=== PATIENT | male | born 1945 | race Caucasian/White ===

== ENCOUNTER 2016-12-16 12:43 | Emergency (ER) | payer MEDICARE, OTHER | END 2016-12-16 16:24 | disposition home or self-care (01) | DX: N50.811 Right testicular pain (principal); K40.90 Unilateral inguinal hernia, without obstruction or gangrene, not specified as recurrent; R03.0 Elevated blood-pressure reading, without diagnosis of hypertension; F03.90 Unspecified dementia, unspecified severity, without behavioral disturbance, psychotic disturbance, mood disturbance, and anxiety; Z87.820 Personal history of traumatic brain injury; Z79.82 Long term (current) use of aspirin; Z87.891 Personal history of nicotine dependence ==

== ENCOUNTER 2016-12-18 | Outpatient (CLI) | payer MEDICARE, OTHER | END 2016-12-18 09:33 | disposition critical access hospital (66) | DX: N50.819 Testicular pain, unspecified (principal) | CPT/HCPCS: A0425; A0429 ==

== ENCOUNTER 2016-12-18 09:41 | Emergency (ER) | payer MEDICARE, OTHER ==
[2016-12-18] MEDS ORDERED: ACETAMINOPHEN 325 MG TABLET PO STA (09:53)
[2016-12-18] MEDS ORDERED: ACETAMINOPHEN 325 MG TABLET PO ONE (10:01)
== END 2016-12-18 10:18 | disposition home or self-care (01) ==
DX: K40.90 Unilateral inguinal hernia, without obstruction or gangrene, not specified as recurrent (principal); R03.0 Elevated blood-pressure reading, without diagnosis of hypertension; F03.90 Unspecified dementia, unspecified severity, without behavioral disturbance, psychotic disturbance, mood disturbance, and anxiety; Z87.891 Personal history of nicotine dependence; Z79.82 Long term (current) use of aspirin
CPT/HCPCS: 99283; A9270

== ENCOUNTER 2016-12-22 08:25 | Day surgery (SDC) | payer MEDICARE, OTHER ==
[~2016-12-22 08:25] MED LIST: ceFAZolin 1 GM VIAL ONE
[2016-12-22] MEDS ORDERED: LACTATED RINGERS 1,000 ML IV ONE (08:52)
[2016-12-22] MEDS ORDERED: PROPOFOL 200 MG/20 ML VIAL IVP ONE (10:10)
[2016-12-22] MEDS ORDERED: fentaNYL 100 MCG/2 ML VIAL IVP ONE (10:10)
[2016-12-22] MEDS ORDERED: LIDOCAINE-PF 2% 10 ML AMP SUBQ ONE (10:10)
[2016-12-22] MEDS ORDERED: MIDAZOLAM 2 MG/2 ML VIAL IVP ONE (10:10)
[2016-12-22] MEDS ORDERED: LIDOCAINE 1%-EPI 1:100000 20 ML MDV SUBQ ONE ×2 (10:25)
[2016-12-22] MEDS ORDERED: BUPIVACAINE 0.5% PF 30 ML VIAL SUBQ ONE ×2 (10:25)
[2016-12-22] MEDS ORDERED: oxyCOD/ACETAMIN 5 MG/325 MG TABLET PO ONE (11:59)
== END 2016-12-22 08:26 | disposition home or self-care (01) ==
PROC: 0YU50JZ Supplement Right Inguinal Region with Synthetic Substitute, Open Approach (ICD-10-PCS; principal; 2016-12-22 09:30)
DX: K40.90 Unilateral inguinal hernia, without obstruction or gangrene, not specified as recurrent (principal); F32.9 Major depressive disorder, single episode, unspecified; Z87.820 Personal history of traumatic brain injury; Z82.49 Family history of ischemic heart disease and other diseases of the circulatory system; Z80.0 Family history of malignant neoplasm of digestive organs; Z87.891 Personal history of nicotine dependence; E78.5 Hyperlipidemia, unspecified; Z79.82 Long term (current) use of aspirin; F03.90 Unspecified dementia, unspecified severity, without behavioral disturbance, psychotic disturbance, mood disturbance, and anxiety
CPT/HCPCS: 49505; A9270; J7120

== ENCOUNTER 2017-02-15 13:38 | Outpatient (CLI) | payer MEDICARE, OTHER | END 2017-02-15 13:39 | disposition home or self-care (01) | DX: R45.1 Restlessness and agitation (principal); R41.81 Age-related cognitive decline ==

== ENCOUNTER 2017-08-16 14:39 | Outpatient (CLI) | payer OTHER ==
--- NOTE | 2017-08-16 18:03 | CT Report ---
CT BRAIN WITHOUT CONTRAST: 08/16/2017 CLINICAL INDICATION: Progressive cognitive decline, worsening gait. COMPARISON: 10/22/2015 TECHNIQUE: Axial CT images of the brain were obtained without contrast. FINDINGS: Encephalomalacia in the bilateral frontal lobes and right temporal lobe were stable, annamaria tible with previous trauma. Atrophy is unchanged. There is no evidence of developing hydrocephalus. No acute hemorrhage, mass effect, or midline shift is present. The basilar cisterns remain patent. Postoperative changes are noted in the orbits bilaterally. The paranasal sinuses demonstrate mild mucosal thickening. IMPRESSION: STABLE ATROPHY AND CHRONIC ENCEPHALOMALACIA, COMPATIBLE WITH SEQUELA OF PREVIOUS TRAUMA. NO EVIDENCE OF ACUTE HEMORRHAGE OR MASS EFFECT. In accordance with CT protocol optimization, one or more of the following dose reduction techniques w ere utilized for this exam: automated exposure control, adjustment of mA and/or KV based on patient size, or use of iterative reconstructive technique. JOB #: [id number] EXT JOB #:[id number]
== END 2017-08-16 14:40 | disposition home or self-care (01) ==
LOC: DI 14:39
PROVIDERS: ATTEND Psychiatry & Neurology Neurology
DX: G31.9 Degenerative disease of nervous system, unspecified (principal); G93.89 Other specified disorders of brain
CPT/HCPCS: 36415; 70450; 82607

== ENCOUNTER 2017-08-27 11:59 | Outpatient (CLI) | payer MEDICARE, MEDICAID | END 2017-08-27 12:00 | disposition critical access hospital (66) | LOC: EMS 11:59 | PROVIDERS: ATTEND Surgery | DX: R53.1 Weakness (principal); R47.81 Slurred speech | CPT/HCPCS: A0425; A0429 ==

== ENCOUNTER 2017-08-27 12:08 | Observation (INO) | payer MEDICARE, MEDICAID ==
--- NOTE | 2017-08-27 12:16 | ED Physician Documentation ---
PD HPI FOCAL NEURO - Stated complaint Stated Complaint: CVA - Chief complaint Chief Complaint: Neuro - History obtained from History obtained from: Patient, Family (), EMS - History of Present Illness Timing - onset: Today (at 10:15 this morning, noted onset of expressive aphasia and dysarthria, slow to answer. No focal weakness. Had seemed okay this morning when awoke.) Timing - duration: Hours (2) Timing - details: Abrupt onset, Still present (improving slowly here in ED) Severity of deficit: Moderate Weakness: No: Face, Arm, Leg Numbness: No: Face, Arm, Leg Associated symptoms: No: Headache, Nausea / vomiting, Fall, Head injury Contributing factors: negative: Anticoagulated Baseline status: positive: A&OX3, ambulatory, indep, Dementia Similar symptoms before: Has not had sx before Recently seen: Not recently seen Review of Systems Unable to obtain: Dementia, Other (info from ) Constitutional: denies: Fever, Chills Nose: denies: Rhinorrhea / runny nose, Congestion Throat: denies: Sore throat Cardiac: denies: Chest pain / pressure, Palpitations Respiratory: denies: Dyspnea, Cough GI: denies: Abdominal Pain, Nausea, Vomiting, Diarrhea Musculoskeletal: denies: Neck pain, Back pain Neurologic: reports: Difficulty speaking, Altered mental status (trouble speaking and also very slow to respond to questions and directions.). denies: Generalized weakness, Focal weakness, Numbness, Syncope Endocrine: denies: Weight loss Immunocompromised: denies: Immunocompromised PD PAST MEDICAL HISTORY - Past Medical History Cardiovascular: None Respiratory:  Neuro: Dementia, Head injury Endocrine/Autoimmune: None GI: None : Frequency HEENT: Glaucoma, Chronic hearing loss Psych: Depression, Anxiety Musculoskeletal: None Derm: None - Past Surgical History Past Surgical History: No General: Colonoscopy Ortho: Other Neuro: Craniotomy - Present Medications Home Medications: Ambulatory Orders Medication Instructions Recorded Confirmed Aspirin 81 mg ORAL DAILY 04/13/15 08/27/17 Cholecalciferol (Vitamin D3) 2,000 unit PO DAILY 04/13/15 08/27/17 [Vitamin D3] Lorazepam 1 mg PO DAILY 08/27/17 08/27/17 Lorazepam 2 mg PO 2100 08/27/17 08/27/17 Aspirin [Nadai] 325 mg PO DAILYWM tablet 08/28/17 Atorvastatin [Lipitor] 10 mg PO QPM #30 tablet 08/28/17 - Allergies Allergies/Adverse Reactions: Allergies Allergy/AdvReac Type Severity Reaction Status Date / Time No Known Drug Allergies Allergy Verified 08/27/17 12:22 - Social History Does the pt smoke?: No Smoking Status: Former smoker Does the pt drink ETOH?: Yes Does the pt have substance abuse?: No - Family History Family history: reports: Non contributory - Immunizations Immunizations are current?: No Immunizations: TDAP >10years/unknown - POLST Patient has POLST: No PD ED PE NORMAL - Vitals Vital signs reviewed: Yes - General General: No acute distress, Well developed/nourished, Other (oriented to person , slow to answer questions (some due to hard of hearing, but still slow when he hears okay. ) - HEENT HEENT: Atraumatic, PERRL, EOMI, Pharynx benign - Neck Neck: Supple, no meningeal sign, No adenopathy, No JVD - Cardiac Cardiac: RRR, No murmur - Respiratory Respiratory: Clear bilaterally - Abdomen Abdomen: Soft, Non tender - Male Male : Deferred - Rectal Rectal: Deferred - Back Back: No CVA TTP - Derm Derm: Normal color, Warm and dry - Extremities Extremities: Normal ROM s pain, No edema, No calf tenderness / cord - Neuro Neuro: No motor deficit, No sensory deficit. No: Normal speech NIHSS - Level of Consciousness Level of consciousness: (0) Alert, Keenly responsive LOC Questions: (0) Answers both Q's correct LOC Commands: (0) Performs both correctly - Gaze Best Gaze: (0) Normal - Visual Visual: (0) No loss - Facial Palsy Facial Palsy: (0) Normal, symmetrical movement - Motor Arms (both separate) Motor Arm (right): (0) No drift Motor Arm (left): (0) No drift - Motor Legs (both separate) Motor Leg (right): (0) No drift Motor Leg (left): (0) No drift - Limb Ataxia Limb Ataxia: (0) Absent - Sensory Sensory: (0) Normal - Best Language Best Language: (1) [id number] - Dysarthria Dysarthria: (1) [id number] dysarthria - Extinction and Inattention (formally neg Extinction and inattention: (0) No abnormality - Total Score/Results Total Score/Result: 2 Results - Vitals Vitals: Oxygen O2 Source Room air - EKG (time done) 12:27 Rate: Rate (enter#) (64) Rhythm: NSR (with prequent PACs) [place]: Normal Intervals: Normal [place] QRS: Normal Ischemia: Normal ST segments, ST elevation c/w repol. No: ST elevation c/w ischemia, ST depression - Labs Labs: Laboratory Tests 08/27/17 08/27/17 12:11 13:05 WBC 5.4 RBC 4.91 Hgb 14.3 Hct 43.1 MCV 87.8 MCH 29.1 MCHC 33.1 RDW 13.9 Plt Count 208 MPV 6.9 L Neut # 3.6 Lymph # 1.3 L Wilkes # 0.4 Eos # 0.1 Baso # 0.0 Absolute Nucleated RBC 0.00 Nucleated RBC % 0.0 Sodium 138 Potassium 3.8 Chloride 104 Carbon Dioxide 27 Anion Gap 7.0 BUN 13 Creatinine 0.8 Estimated GFR (MDRD) 95 Glucose 94 Calcium 8.9 Magnesium 2.0 Total Bilirubin 0.6 AST 18 ALT 14 Alkaline Phosphatase 42 Total Protein 6.3 L Albumin 3.9 Globulin 2.4 Albumin/Globulin Ratio 1.6 Lipase 43 - Rads (name of study) head CT Radiology: Prelim report reviewed (no acute process), Discussed with rads PD MEDICAL DECISION MAKING - ED course Complexity details: reviewed results, re-evaluated patient (language improving but he is agitated now and given meds for anxiety. Still concern for CVA vs TIA , metabolic or infectious causes of symptoms. ), considered differential, d/w business analyst consultant (Neurology at [facility], who did not feel patient has symptoms/ certainty enough to warrant risk of TPA. Further workup needed. ), other ( talked with Dr. Butler, Hospitalist, who will place patient in hospital. ) Departure - Departure Disposition: ED Place in Observation Clinical Impression: Expressive aphasia TIA (transient ischemic attack) Qualifiers: Transient cerebral ischemia type: other Qualified Code(s): G45.8 - Other transient cerebral ischemic attacks and related syndromes Condition: Good Record reviewed to determine appropriate education?: Yes Discharge Date/Time: 08/27/17 15:57
[2017-08-27] MEDS ORDERED: SODIUM CHLORIDE 0.9% 1,000 ML IV ONE (12:46)
--- NOTE | 2017-08-27 12:59 | CT Preliminary Report ---
Exam: CT HEAD W/O STROKE PROTOCOL IMPRESSION: 1. No acute intracranial abnormality. 2. Patchy areas of encephalomalacia seen in the frontal lobes bilaterally and anterior right temporal lobe. Findings may represent sequela of previous trauma. This is unchanged. Critical test: Findings are discussed with referring physician on 08/27/2017 at 1244 hrs. [facility] SITE ID: [id number]
[2017-08-27] MEDS ORDERED: LORazepam 2 MG/ML SYRINGE IVP STA (13:01)
[2017-08-27] MEDS ORDERED: LORazepam 2 MG/ML SYRINGE ONE (13:05)
[2017-08-27 13:08] LABS: ALBUMIN/GLOBULIN RATIO 1.6 (1.0-2.2); BILIRUBIN,TOTAL 0.6 mg/dL (0.2-1.0); CALCIUM 8.9 mg/dL (8.5-10.3); CREATININE 0.8 mg/dL (0.6-1.2); POTASSIUM 3.8 mmol/L (3.5-5.0); TOTAL PROTEIN 6.3 g/dL (6.7-8.2)
[2017-08-27 13:12] LABS: BASOPHILS % (AUTO) 0.3 %; EOSINOPHILS # (AUTO) 0.1 10^3/uL (0.0-0.7); EOSINOPHILS % (AUTO) 1.6 %; HCT - HEMATOCRIT 43.1 % (42.0-52.0); HGB - HEMOGLOBIN 14.3 g/dL (14.0-18.0); LYMPHOCYTES # (AUTO) 1.3 10^3/uL (1.5-3.5); MEAN CORPUSCULAR HEMOGLOBIN 29.1 pg (27.0-31.0); MEAN CORPUSCULAR HGB CONC 33.1 g/dL (32.0-36.0); MEAN CORPUSCULAR VOLUME 87.8 fL (80.0-94.0); MEAN PLATELET VOLUME 6.9 fL (7.4-11.4); MONOCYTES # (AUTO) 0.4 10^3/uL (0.0-1.0); MONOCYTES % (AUTO) 7.6 %; NEUTROPHILS # (AUTO) 3.6 10^3/uL (1.5-6.6); NEUTROPHILS % (AUTO) 66.5 %; RED BLOOD COUNT 4.91 10^6/uL (4.70-6.10); RED CELL DISTRIBUTION WIDTH 13.9 % (12.0-15.0); UNCORRECTED WHITE BLOOD COUNT 5.4 x10^3/uL; WHITE BLOOD COUNT 5.4 x10^3/uL (4.8-10.8)
--- NOTE | 2017-08-27 13:15 | CT Report ---
EXAM: CT HEAD EXAM DATE: 08/27/2017 12:27 PM. CLINICAL HISTORY: Slurred speech/weakness. COMPARISON: CT scan of the head 08/16/2017, 10/22/2015. TECHNIQUE: Multiaxial CT images were obtained from the foramen magnum to the vertex. IV contrast: Non e. Reformats: Coronal. In accordance with CT protocol optimization, one or more of the following dose reduction techniques w ere utilized for this exam: automated exposure control, adjustment of mA and/or KV based on patient s ize, or use of iterative reconstructive technique. FINDINGS: Parenchyma: Cystic encephalomalacia is seen involving the anterior-inferior frontal lobes bilaterally . Patchy cystic encephalomalacia is also seen in the anterior temporal pole on the right. Small wedge -shaped area of parenchymal hypodensity is also seen anterolaterally in the right frontal lobe. These findings are unchanged. Extraaxial Spaces: Normal for age. No subdural or epidural collections identified. Ventricles: No hydrocephalus. Sinuses and orbits: Mild scattered mucosal thickening is seen throughout paranasal sinuses no opacifi cation or layering fluid level. The mastoid air cells are clear. Postoperative change is seen in the visualized maxilla bilaterally. Postoperative change is seen at the level of the right zygomatic arch . Bones: No evidence of fracture or calvarial defect. Other: None. IMPRESSION: 1. No acute intracranial abnormality. 2. Patchy areas of encephalomalacia seen in the frontal lobes bilaterally and anterior right temporal lobe. Findings may represent sequela of previous trauma. This is unchanged. Critical Test: Findings are discussed with referring physician on 08/27/2017 at 1244 hrs. [facility] Referring Provider Line: [phone] SITE ID: [id number]
[2017-08-27] MEDS ORDERED: HALOPERIDOL 5 MG/ML VIAL IVP ONE ×2 (13:27→13:41)
[2017-08-27] MEDS ORDERED: HALOPERIDOL 5 MG/ML VIAL ONE ×2 (13:33→13:46)
[2017-08-27] MEDS ORDERED: SODIUM CHLORIDE FLUSH 0.9% 10 ML SYRINGE IVP PRN (13:41)
[2017-08-27] MEDS ORDERED: LORazepam 0.5 MG TABLET PO SCH (14:00)
[2017-08-27 14:05] LABS: BILIRUBIN,URINE NEGATIVE (NEGATIVE)
[2017-08-27 14:06] LABS: UA CHARGE (STRIP ONLY) YES; UR CULTURE IF IND NOT INDICATED
[2017-08-27] MEDS ORDERED: IOPAMIDOL-300 100 ML VIAL ONE (14:29)
[2017-08-27] MEDS ORDERED: IOPAMIDOL-300 100 ML VIAL IVP ONE (15:20)
[2017-08-27] MEDS: SODIUM CHLORIDE FLUSH 0.9% 10 ML SYRINGE IVP SCH ×2 (15:41→21:18)
--- NOTE | 2017-08-27 16:15 | CT Preliminary Report ---
Exam: CT HEAD ANGIO Impression: CT angiogram head 1. There is calcified atherosclerotic plaque scattered throughout the carotid siphons without associa rc, hemodynamically significant ICA stenosis. 2. Otherwise unremarkable intracranial CT angiogram. No evidence of occlusion or hemodynamically sign ificant stenosis affecting main branches of the anterior or posterior circulations. SITE ID: [id number]
--- NOTE | 2017-08-27 16:29 | CT Preliminary Report ---
Exam: CT NECK ANGIO Impression: 1. There is atherosclerotic disease at the carotid bifurcations bilaterally. However, there is no sig nificant associated carotid artery stenosis. 2. Evaluation of the vertebral arteries is somewhat limited due to artifact. There appears be mild fo fiona narrowing in the proximal V2 segments bilaterally due to mass effect by large uncovertebral osteo phytes at C5-C6. No other obvious pathology is identified in the extracranial vertebral arteries. 3. Incidentally noted is a multilevel spinal stenosis. The narrowing appears be most prominent at the C4-C5 level where the mid sagittal canal diameter is reduced to about 6.5 mm. This typically equates to severe spinal stenosis. The possibility of mild cord impingement cannot be excluded. Consider fur ther assessment with dedicated imaging of the cervical spine, as clinically warranted. SITE ID: [id number]
[2017-08-27] MEDS: ASPIRIN 325 MG TABLET PO SCH (16:41)
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
--- NOTE | 2017-08-27 17:23 | HISTORY & PHYSICAL EXAMINATION ---
Chief Complaint - Chief Complaint Chief Complaint: altered mental status Stroke/TIA/Neuro Template - Admitted From Admitted from: ED - History Obtained From Records Reviewed: RN notes reviewed History obtained from: Family, Caregiver Exam limitations: Clinical condition, Language barrier (Patient was non-verbal at the time of the exam.) - History of Present Illness Problem Location Description: Acute mental status changes Severity at the worst: reports: Moderate Symptom Quality: reports: Expressive aphasia, Receptive aphasia, Ataxia, Other ( mute every since first noticed by this morning.) Context- Symptoms started w/: reports: Awake Timing: reports: Abrupt onset Date of onset: 08/27/17 Time of onset: 10:00 Duration: reports: Hours: Improved with: reports: Nothing Worsened by: reports: Movement, Other (new faces, loud voices.) Associated symptoms: reports: General Weakness HPI Comment/Other: Remy Quintana is a 72 year old male with a history of traumatic brain injury in 2002, closed head injury after a fall on the street while being intoxicated in 2014 per chart review, glaucoma, depression, anxiety disorder, hearing loss, and a long history of illicit drug use. He came to the ED today after his , Leonor noted an inability to ambulate and dysarthria sometime around 10am. Patient was very agitated while in the ED, so lorazepam and halal were administered with a desired effect of mild sedation. A CT with and without contrast of head and neck was performed with adequate comparisons done and there was no acute hemorrhage noted. [facility] neurology was contacted by ER physician and patient was not a candidate for TPA therapy due to the unknown nature of presenting symptoms. He was admitted to Hospitalist service for observation, further work-up, including an MRI. Unfortunately, the MRI was not completed due to profound patient agitation. But after around the 12th hour since admission, patient became verbal and was nearly baseline at the time of discharge. PMH/PSH - Past Medical History Cardiovascular: positive: None Respiratory: positive: None Neuro: positive: Dementia, Head injury Endocrine/Autoimmune: positive: None GI: positive: None : positive: None, Frequency HEENT: positive: Glaucoma, Chronic hearing loss Psych: positive: Depression, Anxiety Musculoskeletal: positive: None Derm: positive: None MRSA Hx?: No - Past Surgical History General: positive: Colonoscopy Ortho: positive: Other Neuro: positive: Craniotomy HEENT: positive: Other (glaucma) Other past surgical history: Trigger finger repair. Social & Family Hx - Living Situation Living Situation: With spouse/s.o., With caregiver(s) (Coordinated care workers assist with care/housekeeping/ADLs 3xs per week.) - Social History Does the pt smoke?: No Smoking Status: Former smoker Does the pt drink ETOH?: Yes ETOH Use: Liquor (Occasional per report. On 10/22/15 pt suffered a closed head injury after falling on the street while intoxicated.) Does the pt have substance abuse?: No Substance Use and Type: Marijuana (Past history, no recent use. admits to patient being a chronic "stoner" in his earlier years.) Additional Social History: Leonor notes patient to have an extremely high IQ, even after suffering from TBI 14 years ago. - POLST Patient has POLST: No POLST Status: Full Code - Family History Family History: Mother: Cancer, Father: Alcoholism, [place], Sister: Cancer Meds/Allgy - Home Medications Home Medications: Ambulatory Orders Medication Instructions Recorded Confirmed Aspirin 81 mg ORAL DAILY 04/13/15 08/27/17 Cholecalciferol (Vitamin D3) 2,000 unit PO DAILY 04/13/15 08/27/17 [Vitamin D3] Lorazepam 1 mg PO DAILY 08/27/17 08/27/17 Lorazepam 2 mg PO 2100 08/27/17 08/27/17 Aspirin [Nadia] 325 mg PO DAILYWM tablet 08/28/17 Atorvastatin [Lipitor] 10 mg PO QPM #30 tablet 08/28/17 - Allergies Allergies/Adverse Reactions: Allergies Allergy/AdvReac Type Severity Reaction Status Date / Time No Known Drug Allergies Allergy Verified 08/27/17 12:22 Review of Systems - Constitutional Constitutional: reports: Fatigue, Weakness, Poor appetite - Eyes Eyes: reports: Corrective lenses - Integumentary Integumentary: reports: Dryness - Neurological Neurological: reports: General weakness, Memory problems, Pre-existing deficit - Psychiatric Psychiatric: reports: Depression, Anxiety, Other (combative at times.) - All Other Systems All Other Systems: reports: Reviewed and negative (Other than previously noted.) Exam - Vital Signs Reviewed Vital Signs: Yes Vital Signs: Vital Signs x48h Pulse Pulse Resp BP BP Pulse Ox 08/27/17 14:00 85 14 131/69 H 100 10/23/17 13:55 64 18 106/79 100 - Physical Exam General Appearance: positive: Mild distress, Lethargic (due to medical sedation , given in ER.) Eyes Bilateral: positive: Normal inspection, PERRL, EOMI ENT: positive: ENT inspection nml, Pharynx nml, No signs of dehydration Neck: positive: Nml inspection, Thyroid nml, No JVD, Trachea midline Respiratory: positive: No respiratory distress Cardiovascular: positive: Regular rate & rhythm Peripheral Pulses: positive: 2+ Abdomen: positive: Non-tender, No organomegaly, Nml bowel sounds, No distention Back: positive: Nml inspection Skin: positive: Color nml, No rash, Warm, Dry Extremities: positive: Nml appearance, No pedal edema Neurologic/Psychiatric: positive: CN's nml (2-12), Weakness, Sensory loss, Depressed mood/affect Reflexes: Bicep (R): 4+, Bicep (L): 4+, Knee (R): 4+, Knee (L): 4+, Ankle (R): 4 +, Ankle (L): 4+ Results - Lab Results Lab results reviewed: Yes Fish Bones: 08/27/17 13:05 08/27/17 12:11 Other Lab Results: Lab Results x24hrs 08/27/17 Range/Units 13:57 Urine Color YELLOW Urine Clarity CLEAR (CLEAR) Urine pH 7.0 (5.0-7.5) PH Ur Specific [place] 1.010 (1.002-1.030) Urine Protein NEGATIVE (NEGATIVE) mg/dL Urine Glucose (UA) NEGATIVE (NEGATIVE) mg/dL Urine Ketones NEGATIVE (NEGATIVE) mg/dL Urine Occult Blood NEGATIVE (NEGATIVE) Urine Nitrite NEGATIVE (NEGATIVE) Urine Bilirubin NEGATIVE (NEGATIVE) Urine Urobilinogen 0.2 (NORMAL) (NORMAL) E.U./dL Ur Leukocyte Esterase NEGATIVE (NEGATIVE) Ur Microscopic Review NOT INDICATED Urine Culture Comments NOT INDICATED TSH, B12, Folate, Amonia, RPR, ESR/CRP, troponin and urine tox screen-pending. - Diagnostic Imaging Results Diagnostic Imaging Results: positive: Final report reviewed Diagnostic Imaging Results Comments: CT head 08/27/17: There is atherosclerotic disease at the carotid bifurcations bilaterally. However, there is no significant associated carotid artery stenosis. There appears to be mild focal narrowing in the proximal V2 segments bilaterally due to mass effect by large uncovertebral osteophytes at C5-C6. No other obvious pathology is identified in the extracranial vertebral arteries. Incidentally noted is a multilevel spinal stenosis. The narrowing appears to be most prominent at the C4-C5 level where the mild sagittal canal diameter is reduced to about 6.5mm. This typically equates to severe spinal stenosis. The possibility of mild cord impingement cannot be excluded. Consider further assessment with dedicated imaging of the cervical spine. Patchy areas of encephalomalacia seen in the frontal lobes bilaterally and anterior right temporal lobe. Findings may represent sequela of previous trauma. This is unchanged and study was compared to CT scan of the head from 10/21, 10/22/2015. CTA head 08/27/17: There is calcified atherosclerotic plaque scattered throughout the carotid siphons without associated, hemodynamically significant ICA stenosis. No evidence of occlusion or hemodynamically significant stenosis affecting main branches of the anterior or posterior circulations. - EKG Results EKG Interpreted Independently: Yes EKG Comparison: positive: Old EKG unavailable EKG Findings: Sinus [id number]. Peaked T-waves. ARRA - Anticipated LOS Anticipated Stay Length: Less than 2 midnights - AMI - Statin at Admit Aspirin Prescribed on Admit: Yes - Stroke - Rehab Assessment Rehab services assessment to be ordered?: No Impression/Plan - Problem List Problem List: 1. Altered mental status: CT head/neck, MRI ordered, but not performed due to patient agitation. 2. Encephalopathy: Labs ordered to determine cause of AMS. TSH, B12, folate, Amonia, RPR, ESR/CRP, troponin and urine tox screen. 3. Agitation: Home lorazepam resumed, additional IV form ordered. at bedside.
[2017-08-27] MEDS ORDERED: ATORVASTATIN 10 MG TABLET PO SCH (21:00)
[2017-08-28] MEDS: SODIUM CHLORIDE FLUSH 0.9% 10 ML SYRINGE IVP SCH ×2 (06:40→14:40)
[2017-08-28 08:08] LABS: THYROID STIMULATING HORMONE 1.47 uIU/mL (0.34-5.60)
[2017-08-28 08:20] LABS: FOLATE 8.01 ng/mL (5.90 - >24.8)
[2017-08-28] MEDS ORDERED: CHOLECALCIFEROL 1,000 UNIT TABLET PO SCH (09:00)
[2017-08-28] MEDS ORDERED: POLYETHYLENE GLYCOL 3350 17 GM PACKET PO SCH (09:00)
[2017-08-28] MEDS ORDERED: ASPIRIN EC 81 MG TABLET PO SCH (09:00)
[2017-08-28] MEDS: LORazepam 0.5 MG TABLET PO PRN ×2 (10:34→16:38)
[2017-08-28] MEDS: ASPIRIN 325 MG TABLET PO SCH (10:34)
--- NOTE | 2017-08-28 16:17 | DISCHARGE SUMMARY ---
Discharge Summary Admit Date: 08/27/17 Discharge Date: 08/28/17 Discharging Provider: Sally Shaffer NP Code Status: Attempt Resuscitation Condition at Discharge: Good Discharge Disposition: 01 Home, Self Care Discharge Facility Name: Home with - DIAGNOSES Admission Diagnoses: Altered mental status Agitation Ataxia Dysarthria - HPI History of Present Illness: Remy Quintana is a 72 year old male with a history of traumatic brain injury in 2002, closed head injury after a fall on the street while being intoxicated in 2014 per chart review, glaucoma, depression, anxiety disorder, hearing loss, and a long history of illicit drug use. He came to the ED today after his , Leonor noted an inability to ambulate and dysarthria sometime around 10am. Patient was very agitated while in the ED, so lorazepam and halal were administered with a desired effect of mild sedation. A CT with and without contrast of head and neck was performed with adequate comparisons done and there was no acute hemorrhage noted. [facility] neurology was contacted by ER physician and patient was not a candidate for TPA therapy due to the unknown nature of presenting symptoms. He was admitted to Hospitalist service for observation, further work-up, including an MRI. Unfortunately, the MRI was not completed due to profound patient agitation. But after around the 12th hour since admission, patient became verbal and was nearly baseline at the time of discharge. - HOSPITAL COURSE Hospital Course: 1. Altered mental status: CT head/neck and CTA head/neck performed. MRI ordered, but not performed due to patient agitation. 2. Rule out Encephalopathy: Labs ordered to determine cause of AMS. TSH, B12 , folate, Amonia, RPR, ESR/CRP, troponin were all within normal limits, and urine tox screen was not obtained. 3. Agitation: Home lorazepam resumed. at bedside. Patient continued with mild agitation, which is noted to be somewhat baseline, until the time of discharge. noted "feeling safe" around her despite these time of combativeness and agitation. - ALLERGIES Allergies/Adverse Reactions: Allergies Allergy/AdvReac Type Severity Reaction Status Date / Time No Known Drug Allergies Allergy Verified 08/27/17 12:22 - MEDICATIONS Home Medications: Ambulatory Orders Medication Instructions Recorded Confirmed Aspirin 81 mg ORAL DAILY 04/13/15 08/27/17 Cholecalciferol (Vitamin D3) 2,000 unit PO DAILY 04/13/15 08/27/17 [Vitamin D3] Lorazepam 1 mg PO DAILY 08/27/17 08/27/17 Lorazepam 2 mg PO 2100 08/27/17 08/27/17 Aspirin [Nadia] 325 mg PO DAILYWM tablet 08/28/17 Atorvastatin [Lipitor] 10 mg PO QPM #30 tablet 08/28/17 - PHYSICAL EXAM AT DISCHARGE General Appearance: positive: No acute distress Eyes Bilateral: positive: Normal inspection ENT: positive: ENT inspection nml, Pharynx nml, No signs of dehydration Neck: positive: Nml inspection, Thyroid nml, No JVD Respiratory: positive: Chest non-tender, No respiratory distress, Breath sounds nml Cardiovascular: positive: Regular rate & rhythm, Bradycardia (at times) Peripheral Pulses: positive: 2+ Abdomen: positive: Non-tender, No organomegaly, Nml bowel sounds, No distention Back: positive: Nml inspection Skin: positive: Color nml, No rash, Warm, Dry Extremities: positive: Non-tender, Full ROM, Nml appearance, No pedal edema Neurologic/Psychiatric: positive: Oriented x3, CN's nml (2-12) Reflexes: Bicep (R): 4+, Bicep (L): 4+, Knee (R): 4+, Knee (L): 4+, Ankle (R): 4 +, Ankle (L): 4+ Physical Exam Other/Comments: Remy drastically improved throughtout the past 24 hours. At the time of admission on 08/27/17 patient was combative, agitated, non-verbal, profoundly ataxic and could not tolerate the MRI test. By the morning of discharge patient was near baseline in regards to ambulation and mental status. He was speaking in full sentences and followed every command as requested. - LABS Result Diagrams: 08/27/17 13:05 08/27/17 12:11 - DIAGNOSTIC IMAGING Diagnostic Imaging Results: Final report reviewed Diagnostic Imaging Results Comments: CT head 08/27/17: There is atherosclerotic disease at the carotid bifurcations bilaterally. However, there is no significant associated carotid artery stenosis. There appears to be mild focal narrowing in the proximal V2 segments bilaterally due to mass effect by large uncovertebral osteophytes at C5-C6. No other obvious pathology is identified in the extracranial vertebral arteries. Incidentally noted is a multilevel spinal stenosis. The narrowing appears to be most prominent at the C4-C5 level where the mild sagittal canal diameter is reduced to about 6.5mm. This typically equates to severe spinal stenosis. The possibility of mild cord impingement cannot be excluded. Consider further assessment with dedicated imaging of the cervical spine. Patchy areas of encephalomalacia seen in the frontal lobes bilaterally and anterior right temporal lobe. Findings may represent sequela of previous trauma. This is unchanged and study was compared to CT scan of the head from 10/21, 10/22/2015. CTA head 08/27/17: There is calcified atherosclerotic plaque scattered throughout the carotid siphons without associated, hemodynamically significant ICA stenosis. No evidence of occlusion or hemodynamically significant stenosis affecting main branches of the anterior or posterior circulations. - FOLLOW UP Follow Up: Follow up with PCP in 3-5 days. Decrease environmental stimuli. Use a cane for ambulation and assistance from , Are. See neurology, [facility]. - TIME SPENT Time Spent in Discharge (Minutes): 90
--- NOTE | 2017-08-28 16:18 | Discharge Plan ---
Discharge Plan Disposition: Home, Self Care Condition: Good Prescriptions: Atorvastatin [Lipitor] 10 mg PO QPM #30 tablet Diet: Regular Activity Restrictions: Activity as Tolerated Shower Restrictions: No Driving Restrictions: Yes Assistance Devices: Cane (May benefit from using a cane in the first 24 hours of being home.) Weight Bearing: Full Weight Instruction Topics: Atorvastatin tablets, Aphasia, TIA No Smoking: If you smoke, Please STOP! Call for help. Follow-up with: Jennifer Chang MD [Primary Care Provider] -
[2017-08-28 17:31] VITALS: BP 120/65
== END 2017-08-28 17:40 | disposition home or self-care (01) ==
LOC: EDUNIT# → ED 12:08 → OBS 13:41
PROVIDERS: ADMIT Nurse Practitioner; ATTEND Nurse Practitioner
DX: R41.82 Altered mental status, unspecified (principal); R27.0 Ataxia, unspecified; R47.1 Dysarthria and anarthria; F03.91 Unspecified dementia, unspecified severity, with behavioral disturbance; F41.9 Anxiety disorder, unspecified; F32.9 Major depressive disorder, single episode, unspecified; H91.90 Unspecified hearing loss, unspecified ear; Z79.82 Long term (current) use of aspirin; Z87.891 Personal history of nicotine dependence; Z87.820 Personal history of traumatic brain injury
CPT/HCPCS: 36415; 70450; 70496; 70498; 80053; 80306; 81003; 82607; 82746; 83690; 83735; 84443; 84484; 85025; 85651; 86140; 86780; 93005; 96361; 96374; 96375; 99285; A9270; G0378; J2060; Q9967; 81001; 87086

== ENCOUNTER 2017-11-13 08:00 | Outpatient (CLI) | payer MEDICARE, MEDICAID ==
[2017-11-13 18:00] LABS: BASOPHILS % (AUTO) 0.6 %; EOSINOPHILS # (AUTO) 0.1 10^3/uL (0.0-0.7); EOSINOPHILS % (AUTO) 2.6 %; HGB - HEMOGLOBIN 15.1 g/dL (14.0-18.0); LYMPHOCYTES # (AUTO) 1.9 10^3/uL (1.5-3.5); LYMPHOCYTES % (AUTO) 33.5 %; MEAN CORPUSCULAR HEMOGLOBIN 28.3 pg (27.0-31.0); MEAN CORPUSCULAR HGB CONC 32.3 g/dL (32.0-36.0); MEAN CORPUSCULAR VOLUME 87.7 fL (80.0-94.0); MEAN PLATELET VOLUME 7.9 fL (7.4-11.4); MONOCYTES # (AUTO) 0.6 10^3/uL (0.0-1.0); MONOCYTES % (AUTO) 9.8 %; NEUTROPHILS % (AUTO) 53.5 %; PLT - PLATELET COUNT 237 10^3/uL (130-450); RED BLOOD COUNT 5.33 10^6/uL (4.70-6.10); RED CELL DISTRIBUTION WIDTH 13.9 % (12.0-15.0); WHITE BLOOD COUNT 5.7 x10^3/uL (4.8-10.8)
[2017-11-13 18:12] LABS: ALBUMIN 4.3 g/dL (3.2-5.5); ALBUMIN/GLOBULIN RATIO 1.5 (1.0-2.2); BILIRUBIN,TOTAL 0.5 mg/dL (0.2-1.0); CALCIUM 9.2 mg/dL (8.5-10.3); CREATININE 0.8 mg/dL (0.6-1.2); TOTAL PROTEIN 7.1 g/dL (6.7-8.2)
== END 2017-11-13 08:01 | disposition home or self-care (01) ==
LOC: LAB.R 08:00
PROVIDERS: ATTEND Internal Medicine
DX: F03.90 Unspecified dementia, unspecified severity, without behavioral disturbance, psychotic disturbance, mood disturbance, and anxiety (principal); Z79.899 Other long term (current) drug therapy
CPT/HCPCS: 80053; 84443; 85025

== ENCOUNTER 2017-12-15 10:50 | Outpatient (CLI) | payer MEDICARE, MEDICAID | END 2017-12-15 10:51 | disposition critical access hospital (66) | LOC: EMS 10:50 | PROVIDERS: ATTEND Surgery | DX: R41.82 Altered mental status, unspecified (principal); R45.1 Restlessness and agitation | CPT/HCPCS: A0425; A0429 ==

== ENCOUNTER 2017-12-15 10:59 | Emergency (ER) | payer MEDICARE, MEDICAID ==
[2017-12-15] MEDS ORDERED: SODIUM CHLORIDE 0.9% 1,000 ML IV ONE (12:11)
--- NOTE | 2017-12-15 12:14 | ED Physician Documentation ---
History of Present Illness - Stated complaint Stated Complaint: DEC LOC - Chief complaint Chief Complaint: Neuro - History obtained from History obtained from: Patient, Family - History of Present Illness Timing: Today Pain level max: 0 Pain level now: 0 Improved by: nothing Worsened by: nothing - Additonal information Additional information: Patient is a 72-year-old male who presents to the emergency department with altered mental status, drowsiness and combativeness today. Does have a history of dementia. Recently started on Seroquel, has been on this for approximately 9 days. Approximately 30 minutes after taking the Seroquel today, he became very drowsy and hard to wake up. This has never happened after taking the Seroquel before. He has had no recent illnesses. No fall. Seems to be waking up for now. No seizure-like activity. Does have a history of brain injury. Review of Systems Unable to obtain: AMS, Dementia Constitutional: denies: Fever GI: denies: Vomiting Skin: denies: Rash Musculoskeletal: denies: Neck pain, Back pain Neurologic: denies: Headache PD PAST MEDICAL HISTORY - Past Medical History Cardiovascular: None Respiratory:  Neuro: Dementia, Head injury Endocrine/Autoimmune: None GI: None : Frequency HEENT: Glaucoma, Chronic hearing loss Psych: Depression, Anxiety Musculoskeletal: None Derm: None - Past Surgical History Past Surgical History: No General: Colonoscopy Ortho: Other Neuro: Craniotomy HEENT: Other - Present Medications Home Medications: Ambulatory Orders Medication Instructions Recorded Confirmed Aspirin 81 mg ORAL DAILY 04/13/15 12/15/17 Cholecalciferol (Vitamin D3) 2,000 unit PO DAILY 04/13/15 12/15/17 [Vitamin D3] QUEtiapine [SEROquel] 1 tab PO DAILY 12/15/17 12/15/17 - Allergies Allergies/Adverse Reactions: Allergies Allergy/AdvReac Type Severity Reaction Status Date / Time No Known Drug Allergies Allergy Verified 12/15/17 11:16 - Social History Does the pt smoke?: No Smoking Status: Former smoker Does the pt drink ETOH?: Yes Does the pt have substance abuse?: No - Immunizations Immunizations are current?: No Immunizations: TDAP >10years/unknown - POLST Patient has POLST: Yes POLST Status: Full Code PD ED PE NORMAL - Vitals Vital signs reviewed: Yes - General General: No acute distress, Other (drowsy, but arousable) - HEENT HEENT: PERRL, EOMI, Moist mucous membranes - Neck Neck: Supple, no meningeal sign - Cardiac Cardiac: RRR, Strong equal pulses - Respiratory Respiratory: No respiratory distress, Clear bilaterally - Abdomen Abdomen: Soft, Non tender, Non distended - Back Back: No spinal TTP - Derm Derm: Warm and dry, No rash - Extremities Extremities: No deformity - Neuro Neuro: Other (drowsy but arousable) - Psych Psych: Other (drowsy) Results - Vitals Vitals: Vital Signs - 24 hr 12/15/17 12/15/17 12/15/17 11:13 16:17 18:08 Temperature 36.2 C L 36.1 C L Heart Rate 70 55 L 82 Respiratory 18 16 16 Rate Blood Pressure 118/80 142/82 H 138/78 H O2 Saturation 97 97 97 Oxygen O2 Source Room air - EKG (time done) 1229 Rate: Rate (enter#) (57) Rhythm: NSR [place]: Normal Intervals: Normal MD QRS: Normal Ischemia: Normal ST segments (early R wave transition) - Labs Labs: Laboratory Tests 12/15/17 12/15/17 12/15/17 11:15 11:15 11:15 WBC 6.8 RBC 4.99 Hgb 14.6 Hct 42.9 MCV 86.1 MCH 29.2 MCHC 33.9 RDW 14.1 Plt Count 203 MPV 7.4 Neut # 4.5 Lymph # 1.6 [place] # 0.5 Eos # 0.2 Baso # 0.0 Absolute Nucleated RBC 0.01 Nucleated RBC % 0.1 Sodium 142 Potassium 4.0 Chloride 105 Carbon Dioxide 25 Anion Gap 12.0 BUN 16 Creatinine 0.8 Estimated GFR (MDRD) 95 Glucose 102 H Calcium 9.3 Total Bilirubin 0.6 AST 20 ALT 15 Alkaline Phosphatase 42 Troponin I < 0.04 Total Protein 6.6 L Albumin 3.8 Globulin 2.8 Albumin/Globulin Ratio 1.4 Lipase 31 Urine Color Urine Clarity Urine pH Ur Specific [place] Urine Protein Urine Glucose (UA) Urine Ketones Urine Occult Blood Urine Nitrite Urine Bilirubin Urine Urobilinogen Ur Leukocyte Esterase Ur Microscopic Review Urine Culture Comments Salicylates < 6.0 Urine Opiates Screen Ur Oxycodone Screen Urine Methadone Screen Ur Propoxyphene Screen Acetaminophen < 10 L Ur Barbiturates Screen Ur Tricyclics Screen Ur Phencyclidine Scrn Ur Amphetamine Screen U Methamphetamines Scrn U Benzodiazepines Scrn Urine Cocaine Screen U Cannabinoids Screen Ethyl Alcohol 5.1 12/15/17 12/15/17 15:29 15:29 WBC RBC Hgb Hct MCV MCH MCHC RDW Plt Count MPV Neut # Lymph # [place] # Eos # Baso # Absolute Nucleated RBC Nucleated RBC % Sodium Potassium Chloride Carbon Dioxide Anion Gap BUN Creatinine Estimated GFR (MDRD) Glucose Calcium Total Bilirubin AST ALT Alkaline Phosphatase Troponin I Total Protein Albumin Globulin Albumin/Globulin Ratio Lipase Urine Color YELLOW Urine Clarity CLEAR Urine pH 6.0 Ur Specific [place] 1.010 Urine Protein NEGATIVE Urine Glucose (UA) NEGATIVE Urine Ketones NEGATIVE Urine Occult Blood NEGATIVE Urine Nitrite NEGATIVE Urine Bilirubin NEGATIVE Urine Urobilinogen 0.2 (NORMAL) Ur Leukocyte Esterase NEGATIVE Ur Microscopic Review NOT INDICATED Urine Culture Comments NOT INDICATED Salicylates Urine Opiates Screen NEGATIVE Ur Oxycodone Screen NEGATIVE Urine Methadone Screen NEGATIVE Ur Propoxyphene Screen NEGATIVE Acetaminophen Ur Barbiturates Screen NEGATIVE Ur Tricyclics Screen NEGATIVE Ur Phencyclidine Scrn NEGATIVE Ur Amphetamine Screen NEGATIVE U Methamphetamines Scrn NEGATIVE U Benzodiazepines Scrn POSITIVE H Urine Cocaine Screen NEGATIVE U Cannabinoids Screen NEGATIVE Ethyl Alcohol - Rads (name of study) head CT Radiology: Prelim report reviewed, EMP read contemporaneously, See rad report ( No acute intracranial abnormality) PD MEDICAL DECISION MAKING - ED course Complexity details: reviewed old records, reviewed results, re-evaluated patient , considered differential, d/w patient, d/w family ED course: Patient is a 72-year-old male who has a history of Dementia. He was recently started on Seroquel and today became drowsy after taking the medication. No acute findings on CT head, laboratory testing, urinalysis. He was allowed to sleep in the emergency department and awoke to be at his normal mental baseline. We will have them stop the Seroquel at home for now and follow-up with her doctor to adjust his medications. Patient is well-appearing, nontoxic. Afebrile. No evidence of sepsis. No evidence of stroke. Patient and family counseled regarding signs and symptoms for which I believe and urgent re-evaluation would be necessary. Patient with good understanding of and agreement to plan and is comfortable going home at this time This document was made in part using voice recognition software. While efforts are made to proofread this document, sound alike and grammatical errors may occur. Departure - Departure Disposition: 01 Home, Self Care Clinical Impression: Altered mental status Qualifiers: Altered mental status type: transient alteration of awareness Qualified Code(s) : R40.4 - Transient alteration of awareness Condition: Good Instructions: ED Altered Loc Follow-Up: Jennifer Chang MD [Primary Care Provider] - Within 1 week Comments: Return if you worsen. I would recommend stopping the seroquel at this point as it may have caused his symptoms today. Follow up with his doctor for further medications. Discharge Date/Time: 12/15/17 18:11
[2017-12-15 12:19] LABS: BASOPHILS % (AUTO) 0.4 %; EOSINOPHILS # (AUTO) 0.2 10^3/uL (0.0-0.7); EOSINOPHILS % (AUTO) 2.3 %; HGB - HEMOGLOBIN 14.6 g/dL (14.0-18.0); LYMPHOCYTES # (AUTO) 1.6 10^3/uL (1.5-3.5); LYMPHOCYTES % (AUTO) 23.7 %; MEAN CORPUSCULAR HEMOGLOBIN 29.2 pg (27.0-31.0); MEAN CORPUSCULAR HGB CONC 33.9 g/dL (32.0-36.0); MEAN CORPUSCULAR VOLUME 86.1 fL (80.0-94.0); MEAN PLATELET VOLUME 7.4 fL (7.4-11.4); MONOCYTES # (AUTO) 0.5 10^3/uL (0.0-1.0); MONOCYTES % (AUTO) 7.7 %; NEUTROPHILS # (AUTO) 4.5 10^3/uL (1.5-6.6); NEUTROPHILS % (AUTO) 65.9 %; PLT - PLATELET COUNT 203 10^3/uL (130-450); RED BLOOD COUNT 4.99 10^6/uL (4.70-6.10); RED CELL DISTRIBUTION WIDTH 14.1 % (12.0-15.0); WHITE BLOOD COUNT 6.8 x10^3/uL (4.8-10.8)
[2017-12-15 12:30] LABS: ALBUMIN 3.8 g/dL (3.2-5.5); ALBUMIN/GLOBULIN RATIO 1.4 (1.0-2.2); ALKALINE PHOSPHATASE 42 IU/L (42-121); ALT ALANINE AMINOTRANSFERASE 15 IU/L (10-60); AST ASPARTATE AMINOTRANSFERASE 20 IU/L (10-42); BILIRUBIN,TOTAL 0.6 mg/dL (0.2-1.0); BUN - BLOOD UREA NITROGEN 16 mg/dL (6-20); CALCIUM 9.3 mg/dL (8.5-10.3); CARBON DIOXIDE - CO2 25 mmol/L (21-32); CHLORIDE 105 mmol/L (101-111); CREATININE 0.8 mg/dL (0.6-1.2); GFR - MDRD 95 (>89); GLUCOSE 102 mg/dL (70-100); LIPASE 31 U/L (22-51); SALICYLATE < 6.0 mg/dL; SODIUM 142 mmol/L (135-145); TOTAL PROTEIN 6.6 g/dL (6.7-8.2)
[2017-12-15 12:35] LABS: ACETAMINOPHEN < 10 ug/mL (10-30)
[2017-12-15 15:48] LABS: MUDS CUTOFF CONCENTRATIONS CUTOFF CONC BELOW:
[2017-12-15 15:51] LABS: BILIRUBIN,URINE NEGATIVE (NEGATIVE); GLUCOSE, URINE (UA) NEGATIVE (NEGATIVE); KETONES,URINE (UA) NEGATIVE (NEGATIVE); LEUKOCYTE ESTERASE, URINE NEGATIVE (NEGATIVE); NITRITE,URINE NEGATIVE (NEGATIVE); OCCULT BLOOD,URINE NEGATIVE (NEGATIVE); PROTEIN,URINE NEGATIVE (NEGATIVE); UROBILINOGEN,URINE 0.2 (NORMAL) E.U./dL (NORMAL)
[2017-12-15 15:53] LABS: CLARITY,URINE CLEAR (CLEAR)
[2017-12-15 16:01] LABS: AMPHETAMINE SCREEN,URINE NEGATIVE (NEGATIVE); BENZODIAZEPINES SCREEN, URINE POSITIVE (NEGATIVE); COCAINE SCREEN URINE NEGATIVE (NEGATIVE); METHADONE SCREEN, URINE NEGATIVE (NEGATIVE); METHAMPHETAMINES SCREEN, URINE NEGATIVE (NEGATIVE); OPIATE SCREEN, URINE NEGATIVE (NEGATIVE); OXYCODONE SCREEN, URINE NEGATIVE (NEGATIVE); PROPOXYPHENE SCREEN, URINE NEGATIVE (NEGATIVE); TRICYCLIC ANTIDEPRESSANT,URINE NEGATIVE (NEGATIVE)
--- NOTE | 2017-12-15 16:03 | CT Report ---
EXAM: CT HEAD EXAM DATE: 12/15/2017 03:02 PM. CLINICAL HISTORY: Confusion. COMPARISON: 08/27/2017. TECHNIQUE: Noncontrast axial imaging was performed through the head. In accordance with CT protocol optimization, one or more of the following dose reduction techniques w ere utilized for this exam: automated exposure control, adjustment of mA and/or KV based on patient s ize, or use of iterative reconstructive technique. FINDINGS HEAD CT: Parenchyma: No intraparenchymal hemorrhage. No evidence of mass, midline shift, or CT findings of acu te infarction. There is bifrontal and right temporal encephalomalacia which may be from prior trauma. Extraaxial Spaces: There is generalized volume loss. No subdural or epidural collections identified. Ventricles: Normal in size and position. Sinuses: Paranasal sinuses and mastoid air cells demonstrate no evidence of significant opacification . Bones: No evidence of fracture or calvarial defect. Other: None. IMPRESSION: 1. No acute intracranial CT abnormality. 2. There is stable bifrontal and right temporal encephalomalacia, possibly from prior trauma. [facility] Referring Provider Line: [phone] SITE ID: [id number]
[2017-12-15 18:09] VITALS: BP 138/78
== END 2017-12-15 18:11 | disposition home or self-care (01) ==
LOC: EDUNIT# → ED 10:59
DX: R40.4 Transient alteration of awareness (principal); F03.91 Unspecified dementia, unspecified severity, with behavioral disturbance; Z87.820 Personal history of traumatic brain injury; Z79.82 Long term (current) use of aspirin; Z87.891 Personal history of nicotine dependence
CPT/HCPCS: 36415; 70450; 80053; 80306; 80307; 81003; 83690; 84484; 85025; 93005; 99284; G0480; 80320; 80329; 81001; 87086

== ENCOUNTER 2018-11-21 08:22 | Day surgery (SDC) | payer MEDICARE, MEDICAID ==
[~2018-11-21 08:22] MED LIST changes: +BRIMONIDINE 0.2% OPHTH DROPS 5 ML ONE; +BSS/LIDOCAINE/EPINEPHRINE 1 ML SYRINGE ONE; +CYCLOPENTOLATE 1% OPHTH DROPS 2 ML ONE; +KETOROLAC 0.45% OPHTH DROPS ONE; +PHENYLEPHRINE 2.5% OPHTH 2 ML DROPS ONE; +PROPARACAINE 0.5% OPHTH DROPS 15 ML ONE; +TIMOLOL 0.5% OPHTH DROPS ONE; +TRIAMCIN/MOXIFLOX OPHTHALMIC 0.6 ML VIAL IO ONE; +VANCOMYCIN OPHTHALMI 8MG/0.8ML 8 MG/0.8 ML SYRINGE IO ONE; -ceFAZolin 1 GM VIAL ONE
[2018-11-21] MEDS ORDERED: LACTATED RINGERS 500 ML IV ONE (08:29)
[2018-11-21] MEDS ORDERED: CYCLOPENTOLATE 1% OPHTH DROPS 2 ML RIGHTEYE ONE (08:30)
[2018-11-21] MEDS ORDERED: PROPARACAINE 0.5% OPHTH DROPS 15 ML RIGHTEYE ONE (08:30)
[2018-11-21] MEDS ORDERED: PHENYLEPHRINE 2.5% OPHTH 2 ML DROPS RIGHTEYE ONE (08:30)
[2018-11-21] MEDS ORDERED: KETOROLAC 0.45% OPHTH DROPS RIGHTEYE ONE (08:30)
--- NOTE | 2018-11-21 08:49 | ANESTHESIA ---
Pre-Anesthesia VS, & Labs - Diagnosis nuclear sclerotic cataract right - Procedure right extraction cataract with lens implant Vital Signs: Temp Pulse Resp BP Pulse Ox 36.3 C L 60 14 115/58 L 99 11/21/18 08:37 11/21/18 08:37 11/21/18 08:37 11/21/18 08:37 11/21/18 08:37 Height 5 ft 10 in Weight (kg) 80 kg Body Mass Index 25.5 - NPO >8 hours Home Medications and Allergies Home Medications: Ambulatory Orders Escitalopram [Lexapro] 5 mg PO DAILY 11/14/18 LORazepam [Lorazepam] 2 mg PO ONCE PRN 11/14/18 Aspirin 81 mg ORAL DAILY 04/13/15 Cholecalciferol (Vitamin D3) [Vitamin D3] 2,000 unit PO DAILY 04/13/15 Escitalopram [Lexapro] 5 mg PO DAILY 11/14/18 LORazepam [Lorazepam] 2 mg PO ONCE PRN 11/14/18 Allergies/Adverse Reactions: Allergies Allergy/AdvReac Type Severity Reaction Status Date / Time No Known Drug Allergies Allergy Verified 11/21/18 08:33 Anes History & Medical History - Anesthetic History Anesthesia Complications: reports: No previous complications Family history of Anesthesia Complications: Denies Family history of Malignant Hyperthermia: Denies - Medical History Cardiovascular: reports: None Pulmonary: reports: None Gastrointestinal: reports: None Urinary: reports: None Neuro: reports: Dementia Musculoskeletal: reports: Osteoarthritis Endocrine/Autoimmune: reports: None Skin: reports: Eczema Smoking Status: Former smoker - Surgical History General: Colonoscopy Eyes Ears Nose Throat (EENT): Other Neurologic: Craniotomy Orthopedic: Other Exam General: Alert, Other (dementia) Dental: Loose/Frag Mouth Openin Fingerbreadth Neck Mobility: Normal Mallampati classification: II Thyromental Distance: greater than 6 cm Respiratory: Lungs clear, Normal breath sounds, No respiratory distress, No accessory muscle use Cardiovascular: Regular rate, Normal S1, Normal S2, No murmurs Mental/Cognitive Status: Alert/Oriented X3, Normal for patient Cognitive Status: Within normal limits Plan Anesthesia Type: General Consent for Procedure(s) Verified and Reviewed: No Code Status: Attempt Resuscitation ASA classification: 2-Mild systemic disease Is this case an emergency?: No
[2018-11-21] MEDS ORDERED: BRIMONIDINE 0.2% OPHTH DROPS 5 ML OPTH ONE (09:49)
[2018-11-21] MEDS ORDERED: TIMOLOL 0.5% OPHTH DROPS OPTH ONE (09:49)
[2018-11-21] MEDS ORDERED: CHONDR SULF/HYALURONATE SYRINGE IO ONE (09:49)
[2018-11-21] MEDS ORDERED: BSS/LIDOCAINE/EPINEPHRINE 1 ML SYRINGE IO ONE (09:49)
[2018-11-21] MEDS ORDERED: EPINEPHrine 1 MG/ML AMP IVP ONE (09:49)
[2018-11-21] MEDS ORDERED: VANCOMYCIN OPHTHALMI 8MG/0.8ML 8 MG/0.8 ML SYRINGE IO ONE (09:50)
[2018-11-21] MEDS ORDERED: TRIAMCIN/MOXIFLOX OPHTHALMIC 0.6 ML VIAL IO ONE (09:50)
[2018-11-21] MEDS ORDERED: PROPOFOL 200 MG/20 ML VIAL IVP ONE (10:04)
[2018-11-21] MEDS ORDERED: LIDOCAINE-MPF 2% 5 ML VIAL IM ONE (10:04)
[2018-11-21] MEDS ORDERED: fentaNYL 100 MCG/2 ML VIAL IVP ONE (10:04)
[2018-11-21] MEDS ORDERED: LACTATED RINGERS 1,000 ML IV ONE (10:08)
[2018-11-21 10:52] VITALS: BP 117/74
--- NOTE | 2018-11-21 11:40 | OPERATIVE REPORT ---
DATE OF SERVICE: 11/21/2018 Physician: Rogelio Beck MD PREOPERATIVE DIAGNOSIS: Visually significant cataract, right eye. This was his first cataract surge ry. POSTOPERATIVE DIAGNOSIS: Visually significant cataract, right eye. This was his first cataract surg dylan. NAME OF PROCEDURE: Phacoemulsification with posterior chamber intraocular lens implant, right eye. SURGEON: Rogelio Beck MD ANESTHESIA: General anesthesia using LMA. COMPLICATIONS: None. OPERATIVE INDICATIONS: This is a 73-year-old man with progressive vision loss in the right eye due t o 2-3+ nuclear sclerotic cataract. Best corrected visual acuity was 20/70 in the right eye. Indicat ions for surgery are overall decrease in vision, difficulty seeing words on a computer screen, diffic ulty reading, difficulty seeing words, closed caption or game scores on TV, difficulty seeing street signs, difficulty driving at night or in low light, and difficulty driving at night because of headli ghts from other vehicles. He was consented at length concerning the risks and benefits of cataract s urgery, after which he expressed a desire to proceed with surgery. Of note, he does have dementia an d his , who has medical power of compliance attorney was also present, and acknowledged the risks and benefi ts, and also wished to proceed with surgery. OPERATIVE PROCEDURE: The patient was taken to OR #3 and placed under general anesthesia. A surgical timeout was conducted confirming correct patient, correct procedure, and correct surgical site. His eye was prepped and draped in the usual sterile fashion. The eye was entered at the 12 and 9 o'cloc k positions. Intracameral Shugarcaine was injected into the anterior chamber, followed by Viscoat. A continuous-tear curvilinear capsulorrhexis was performed. The nucleus was hydrodissected and phaco emulsified. The cortex was evacuated using automated infusion and aspiration. Provisc was injected into the capsular bag, at an 11.0 diopter intraocular lens inserted in the bag. Approximately 0.8 mL mixture of triamcinolone, moxifloxacin and vancomycin was injected subconjunctivally in the superior quadrant for infection and inflammation prophylaxis. I and A was used to evacuate the viscoelastic materials. The eye was inflated to physiologic pressure using balanced salt solution, and found to b e watertight. The patient was extubated and taken from the operating room in good condition, and was later given postop instructions. TD: 11/21/2018 10:10
== END 2018-11-21 08:23 | disposition home or self-care (01) ==
LOC: SDS 08:22
PROVIDERS: ATTEND Ophthalmology
PROC: 08RJ3JZ Replacement of Right Lens with Synthetic Substitute, Percutaneous Approach (ICD-10-PCS; principal; 2018-11-21 09:30)
DX: H25.11 Age-related nuclear cataract, right eye (principal); F03.90 Unspecified dementia, unspecified severity, without behavioral disturbance, psychotic disturbance, mood disturbance, and anxiety; Z87.820 Personal history of traumatic brain injury; Z87.891 Personal history of nicotine dependence; Z79.82 Long term (current) use of aspirin
CPT/HCPCS: 66984; A9270; J3490; J7120; V2632

== ENCOUNTER 2019-04-20 11:14 | Emergency (ER) | payer MEDICARE, MEDICAID ==
[2019-04-20] MEDS ORDERED: SODIUM CHLORIDE 0.9% 1,000 ML IV ONE (11:38)
--- NOTE | 2019-04-20 11:45 | ED Physician Documentation ---
History of Present Illness - Stated complaint Stated Complaint: SYNCOPE, SHOULDER PAIN - Chief complaint Chief Complaint: Neuro - History obtained from History obtained from: Patient, Family - Additonal information Additional information: Patient is a 73-year-old male with history of traumatic brain injury and dementia presenting with his with multiple concerns. Several days ago patient's reports that he complained of left shoulder pain without inciting incident, fall, or trauma. otherwise states that he was at his normal state of health and mental state. Earlier today, several hours ago, then noted that he had a likely syncopal episode in the shower. does believe he may have lost consciousness for several seconds and believe he may have hit his shoulder again. He did have one episode of vomiting at that time.No other trauma noted. Patient then went about his normal activities the rest the morning without complaints or changes in his behavior or mental state. notes that he ate his breakfast without issue.Patient then started complaining of left shoulder pain again and brought him in. otherwise denies fever, productive cough, other vomiting, urinary changes, stool changes, or other pain complaints. does note possible mild shortness of breath over the past several weeks. No other improving or worsening factors noted. Review of Systems Constitutional: denies: Fever Respiratory: reports: Dyspnea GI: reports: Vomiting. denies: Abdominal Pain PD PAST MEDICAL HISTORY - Past Medical History Cardiovascular: None Respiratory: None Neuro: Dementia, Other (TBI) Endocrine/Autoimmune: None GI: None : None HEENT: Chronic vision loss, Chronic hearing loss Psych: Depression, Anxiety, Other Musculoskeletal: Osteoarthritis Derm: Eczema - Past Surgical History Past Surgical History: Yes General: Colonoscopy Ortho: Other Neuro: Craniotomy HEENT: Other - Present Medications Home Medications: Ambulatory Orders Medication Instructions Recorded Confirmed Aspirin 81 mg ORAL DAILY 04/13/15 11/21/18 Cholecalciferol (Vitamin D3) 2,000 unit PO DAILY 04/13/15 11/21/18 [Vitamin D3] Escitalopram [Lexapro] 5 mg PO DAILY 11/14/18 11/21/18 LORazepam [Lorazepam] 1 mg PO ONCE PRN 11/14/18 11/21/18 Latanoprost 1 drops DAILY 04/20/19 04/20/19 Triamcinolone 0.1% Cream [Kenalog 04/20/19 0.1% Cream] - Allergies Allergies/Adverse Reactions: Allergies Allergy/AdvReac Type Severity Reaction Status Date / Time No Known Drug Allergies Allergy Verified 04/20/19 11:17 - Social History Does the pt smoke?: No Smoking Status: Former smoker Does the pt drink ETOH?: Yes Does the pt have substance abuse?: No - Immunizations Immunizations are current?: No Immunizations: TDAP >10years/unknown - POLST Patient has POLST: Yes POLST Status: Full Code PD ED PE NORMAL - Vitals Vital signs reviewed: Yes - General General: No acute distress, Well developed/nourished (Dementia/disoriented (at baseline)) - HEENT HEENT: Atraumatic, PERRL, EOMI, Moist mucous membranes, Pharynx benign, Dentition benign - Neck Neck: No bony TTP - Cardiac Cardiac: RRR, No murmur - Respiratory Respiratory: No respiratory distress, Clear bilaterally - Abdomen Abdomen: Soft, Non tender, Non distended - Derm Derm: Normal color, Warm and dry, No rash - Extremities Extremities: No deformity, No tenderness to palpate - Neuro Neuro: Other (Dementia at baseline, verbal, no gross motor or sensory deficits noted) - Psych Psych: Normal mood, Normal affect Results - Vitals Vitals: Vital Signs - 24 hr 04/20/19 04/20/19 04/20/19 11:16 12:15 12:52 Temperature 36.8 C Heart Rate 52 L 57 L 54 L Respiratory 18 16 14 Rate Blood Pressure 114/68 115/65 115/65 O2 Saturation 99 96 100 04/20/19 13:50 Temperature Heart Rate 68 Respiratory 18 Rate Blood Pressure 126/65 O2 Saturation 100 Oxygen O2 Source Room air - EKG (time done) 1125 Rate: Rate (enter#) (51) Rhythm: NSR - Labs Labs: Laboratory Tests 04/20/19 04/20/19 04/20/19 11:48 11:48 11:48 WBC 10.6 RBC 5.43 Hgb 15.7 Hct 47.2 MCV 86.9 MCH 29.0 MCHC 33.4 RDW 14.2 Plt Count 222 MPV 7.1 L Neut # (Auto) 8.6 H Lymph # (Auto) 1.1 L Mcdonough # (Auto) 0.7 Eos # (Auto) 0.0 Baso # (Auto) 0.0 Absolute Nucleated RBC 0.00 Nucleated RBC % 0.0 PT 12.0 INR 1.1 APTT 27.7 Sodium 137 Potassium 4.1 Chloride 104 Carbon Dioxide 24 Anion Gap 9.0 BUN 15 Creatinine 1.0 Estimated GFR (MDRD) 73 L Glucose 74 Calcium 9.4 Total Bilirubin 0.8 AST 19 ALT 12 Alkaline Phosphatase 47 Troponin I Total Protein 7.6 Albumin 4.3 Globulin 3.3 Albumin/Globulin Ratio 1.3 Lipase 48 Urine Color Urine Clarity Urine pH Ur Specific [place] Urine Protein Urine Glucose (UA) Urine Ketones Urine Occult Blood Urine Nitrite Urine Bilirubin Urine Urobilinogen Ur Leukocyte Esterase Ur Microscopic Review Urine Culture Comments 04/20/19 04/20/19 11:48 13:25 WBC RBC Hgb Hct MCV MCH MCHC RDW Plt Count MPV Neut # (Auto) Lymph # (Auto) Mcdonough # (Auto) Eos # (Auto) Baso # (Auto) Absolute Nucleated RBC Nucleated RBC % PT INR APTT Sodium Potassium Chloride Carbon Dioxide Anion Gap BUN Creatinine Estimated GFR (MDRD) Glucose Calcium Total Bilirubin AST ALT Alkaline Phosphatase Troponin I < 0.04 Total Protein Albumin Globulin Albumin/Globulin Ratio Lipase Urine Color DARK YELLOW Urine Clarity CLEAR Urine pH 7.0 Ur Specific [place] 1.010 Urine Protein NEGATIVE Urine Glucose (UA) NEGATIVE Urine Ketones NEGATIVE Urine Occult Blood NEGATIVE Urine Nitrite NEGATIVE Urine Bilirubin NEGATIVE Urine Urobilinogen 0.2 (NORMAL) Ur Leukocyte Esterase NEGATIVE Ur Microscopic Review NOT INDICATED Urine Culture Comments NOT INDICATED PD MEDICAL DECISION MAKING - ED course Complexity details: reviewed results, re-evaluated patient, considered differential, d/w patient, d/w family ED course: Patient presenting with his with concern for left shoulder pain, as well as syncopal episode associated with vomiting this morning.Patient has baseline dementia and history of TBI and is otherwise at his normal behavioral and mental baseline per his . Do not find evidence of new neurological deficit to indicate stroke, but do plan to obtain CT head to further evaluate as a potential cause of syncope. Given the duration of time since his event this morning, patient would no longer be a candidate for TPA if necessary. We will also obtain CT head imaging to evaluate for consequences of falling, although no evidence of trauma on exam. Do not have high suspicion for vertebral, chest, abdominal, or extremity trauma. reports left shoulder discomfort without trauma starting before his episode of syncope today. Will obtain plain films of chest and shoulder to shoulder rule out bony abnormalities, but do not find evidence to indicate such as well as any injuries like rotator cuff injury. Given left shoulder discomfort we will also obtain cardiac work-up including EKG and troponin but have low suspicion for ACS, VT, unstable angina, but considered. Screening lab work and urinalysis will sign be obtained although have low suspicion for other infections or complications. All imaging, screening lab work, and urinalysis returned relatively unremarkable. Patient's requesting discharge home and feel this is appropriate. Discussed return precautions, supportive cares, and appropriate follow-up. voiced understanding and is comfortable with discharge plan. Departure - Departure Disposition: Home, Self Care Clinical Impression: Syncope Qualifiers: Syncope type: unspecified Qualified Code(s): R55 - Syncope and collapse Condition: Good Instructions: ED Syncope Vasovagal Follow-Up: Chester Thompson MD [Primary Care Provider] - Within 3 Days Comments: Please continue all home medications as previously instructed. Please follow-up with your primary care physician in next 1 to 2 days. Return to ED sooner if you experience recurrence of symptoms, worsening symptoms, or have other concerns.
[2019-04-20 11:56] LABS: BASOPHILS % (AUTO) 0.5 %; EOSINOPHILS % (AUTO) 0.4 %; HGB - HEMOGLOBIN 15.7 g/dL (14.0-18.0); LYMPHOCYTES # (AUTO) 1.1 10^3/uL (1.5-3.5); LYMPHOCYTES % (AUTO) 10.7 %; MEAN CORPUSCULAR HGB CONC 33.4 g/dL (32.0-36.0); MEAN CORPUSCULAR VOLUME 86.9 fL (80.0-94.0); MEAN PLATELET VOLUME 7.1 fL (7.4-11.4); MONOCYTES # (AUTO) 0.7 10^3/uL (0.0-1.0); MONOCYTES % (AUTO) 6.5 %; NEUTROPHILS # (AUTO) 8.6 10^3/uL (1.5-6.6); NEUTROPHILS % (AUTO) 81.9 %; PLT - PLATELET COUNT 222 10^3/uL (130-450); RED BLOOD COUNT 5.43 10^6/uL (4.70-6.10); RED CELL DISTRIBUTION WIDTH 14.2 % (12.0-15.0); WHITE BLOOD COUNT 10.6 x10^3/uL (4.8-10.8)
[2019-04-20 12:08] LABS: INR 1.1 (0.8-1.2)
[2019-04-20 12:10] LABS: ALBUMIN 4.3 g/dL (3.2-5.5); ALBUMIN/GLOBULIN RATIO 1.3 (1.0-2.2); BILIRUBIN,TOTAL 0.8 mg/dL (0.2-1.0); CALCIUM 9.4 mg/dL (8.5-10.3); TOTAL PROTEIN 7.6 g/dL (6.7-8.2)
[2019-04-20 12:15] LABS: PARTIAL THROMBOPLASTIN TIME 27.7 secs (24.9-33.3)
--- NOTE | 2019-04-20 12:33 | XRAY Report ---
Reason: pain, recent fall Procedure Date: 04/20/2019 Accession Number: [id number] / [id number] Procedure: XR - Shoulder 3 View LT CPT Code: FULL RESULT: EXAM: LEFT SHOULDER RADIOGRAPHY EXAM DATE: 04/20/2019 12:22 PM. CLINICAL HISTORY: Pain, recent fall. COMPARISON: None. TECHNIQUE: 3 views. FINDINGS: Bones: No acute fracture or bony lesion. Degenerative spurring. Type I/II acromion. Well corticated calcification along the margins of the left glenoid. Joints: Mild narrowing. No dislocation. Soft tissues: Left lung and left ribs are unremarkable. IMPRESSION: 1. No acute osseous abnormalities. 2. Degenerative changes of the left shoulder. RADIA
--- NOTE | 2019-04-20 12:33 | XRAY Report ---
Reason: chest pain Procedure Date: 04/20/2019 Accession Number: [id number] / [id number] Procedure: XR - Chest 1 View X-Ray CPT Code: 75534 FULL RESULT: EXAM: CHEST RADIOGRAPHY EXAM DATE: 04/20/2019 12:22 PM. CLINICAL HISTORY: Chest pain. Syncope. COMPARISON: CHEST 2 VIEW PA/LAT 05/28/2015 2:59 PM. TECHNIQUE: 1 view. FINDINGS: Lungs/Pleura: There is increased density seen projected over the right mid upper lung measuring 20 mm along the anterior margin of the right third rib. No vascular congestion. No focal consolidation. No pneumothorax. Mediastinum: Heart size is normal. Aorta is mildly tortuous. Other: Degenerative changes. No acute osseous abnormality is identified. IMPRESSION: 1. No acute consolidation. No vascular congestion. 2. Region of increased density measuring 20 mm projected over the right mid upper lung, as described. Artifact versus underlying pleural/parenchymal abnormality. Once patient's acute clinical symptoms have improved, follow-up 2 view chest x-ray recommended. RADIA
--- NOTE | 2019-04-20 12:57 | CT Report ---
Reason: pain, recent fall Procedure Date: 04/20/2019 Accession Number: [id number] / [id number] Procedure: CT - HEAD WO CPT Code: FULL RESULT: EXAM: CT HEAD EXAM DATE: 04/20/2019 12:05 PM. CLINICAL HISTORY: Pain, recent fall. COMPARISON: Noncontrast head CT from 12/15/2017. TECHNIQUE: Multiaxial CT images were obtained from the foramen magnum to the vertex. Reformats: Sagittal and coronal. IV contrast: None. In accordance with CT protocol optimization, one or more of the following dose reduction techniques were utilized for this exam: automated exposure control, adjustment of mA and/or KV based on patient size, or use of iterative reconstructive technique. FINDINGS: Parenchyma: There is encephalomalacia in bilateral frontal lobes and the anterior aspect of the right temporal lobe, present previously. The distribution raises the possibility of previous traumatic injury. The overall narayan-white matter differentiation is preserved. No intracranial hemorrhage demonstrated. No evidence of mass or mass-effect. Extraaxial Spaces: Within normal limits. No subdural or epidural collections identified. Ventricles: Mild ventricular prominence, suggestive of central atrophy. No midline shift. The basal cisterns are patent. Sinuses and Orbits: Mild mucoperiosteal thickening in the ethmoid air cells and sphenoid sinuses. No complete opacification or air-fluid levels. Mastoid air cells are clear. There are old orbital wall fractures with fixation/reconstruction hardware in place. The globes are intact. No retrobulbar hematoma. Bones: Fixation hardware in the left frontal region, right zygomatic arch, and bilateral orbital benítez, compatible with previous fractures. Calvarium is intact. Other: None. IMPRESSION: 1. No acute intracranial abnormality. 2. Encephalomalacia in bilateral frontal lobes and anterior right temporal lobe with findings of previous facial fracture fixation, suggestive of previous traumatic injury. RADIA
[2019-04-20 13:34] LABS: BILIRUBIN,URINE NEGATIVE (NEGATIVE); GLUCOSE, URINE (UA) NEGATIVE (NEGATIVE); KETONES,URINE (UA) NEGATIVE (NEGATIVE); LEUKOCYTE ESTERASE, URINE NEGATIVE (NEGATIVE); NITRITE,URINE NEGATIVE (NEGATIVE); OCCULT BLOOD,URINE NEGATIVE (NEGATIVE); PROTEIN,URINE NEGATIVE (NEGATIVE); UROBILINOGEN,URINE 0.2 (NORMAL) E.U./dL (NORMAL)
[2019-04-20 13:38] LABS: CLARITY,URINE CLEAR (CLEAR)
[2019-04-20 13:50] VITALS: BP 126/65
== END 2019-04-20 14:03 | disposition home or self-care (01) ==
LOC: ED 11:14
DX: R55 Syncope and collapse (principal); M19.012 Primary osteoarthritis, left shoulder; R11.10 Vomiting, unspecified; R06.00 Dyspnea, unspecified; F03.90 Unspecified dementia, unspecified severity, without behavioral disturbance, psychotic disturbance, mood disturbance, and anxiety; Z87.820 Personal history of traumatic brain injury; Z79.82 Long term (current) use of aspirin; Z87.891 Personal history of nicotine dependence
CPT/HCPCS: 36415; 70450; 71045; 80053; 81001; 81003; 83690; 84484; 85025; 85610; 85730; 87086; 93005; 96360; 99284

== ENCOUNTER 2019-09-04 08:57 | Day surgery (SDC) | payer MEDICARE, MEDICAID ==
[2019-09-04] MEDS ORDERED: MIDAZOLAM 2 MG/2 ML VIAL IVP ONE (08:58)
[2019-09-04] MEDS ORDERED: NEOSTIGMINE 1 MG/1 ML 10 ML MDV IVP ONE (08:58)
[2019-09-04] MEDS ORDERED: fentaNYL 100 MCG/2 ML VIAL IVP ONE (08:58)
[2019-09-04] MEDS ORDERED: GLYCOPYRROLATE 1 MG/5 ML VIAL IVP ONE (08:58)
[2019-09-04] MEDS ORDERED: PROPOFOL 200 MG/20 ML VIAL IVP ONE (08:58)
[2019-09-04] MEDS ORDERED: CYCLOPENTOLATE 1% OPHTH DROPS 2 ML LEFTEYE ONE (09:20)
[2019-09-04] MEDS ORDERED: KETOROLAC 0.45% OPHTH DROPS LEFTEYE ONE (09:20)
[2019-09-04] MEDS ORDERED: PROPARACAINE 0.5% OPHTH DROPS 15 ML LEFTEYE ONE (09:20)
[2019-09-04] MEDS ORDERED: PHENYLEPHRINE 2.5% OPHTH 2 ML DROPS LEFTEYE ONE (09:20)
[2019-09-04] MEDS ORDERED: LACTATED RINGERS 500 ML IV ONE ×2 (09:31→10:59)
--- NOTE | 2019-09-04 09:36 | ANESTHESIA ---
Pre-Anesthesia VS, & Labs - Diagnosis left nuclear sclerotic cataract - Procedure left cataract extraction with intraocular lens implant Vital Signs: Temp Pulse Resp BP Pulse Ox 36.2 C L 54 L 16 115/69 99 09/04/19 09:17 09/04/19 09:17 09/04/19 09:17 09/04/19 09:17 09/04/19 09:17 Height 5 ft 9 in Weight (kg) 83.8 kg Body Mass Index 25.8 - NPO >8 hours Home Medications and Allergies Aspirin 81 mg ORAL DAILY 04/13/15 Cholecalciferol (Vitamin D3) [Vitamin D3] 2,000 unit PO DAILY 04/13/15 Escitalopram [Lexapro] 5 mg PO DAILY 11/14/18 LORazepam [Lorazepam] 1 mg PO ONCE PRN 11/14/18 Latanoprost 1 drops DAILY 04/20/19 Allergies/Adverse Reactions: Allergies Allergy/AdvReac Type Severity Reaction Status Date / Time No Known Drug Allergies Allergy Verified 04/20/19 11:17 Anes History & Medical History - Anesthetic History Anesthesia Complications: reports: No previous complications - Medical History Cardiovascular: reports: None Pulmonary: reports: None Gastrointestinal: reports: None Urinary: reports: None Neuro: reports: Dementia, Other (TBI) Musculoskeletal: reports: Osteoarthritis Endocrine/Autoimmune: reports: None Skin: reports: Eczema Smoking Status: Former smoker - Surgical History General: Colonoscopy Eyes Ears Nose Throat (EENT): Cataracts, Other Neurologic: Craniotomy Orthopedic: Other Exam General: Alert Dental: WNL Mouth Opening: Greater than 4 Fingerbreadths Mallampati classification: II Thyromental Distance: greater than 6 cm Respiratory: Lungs clear Cardiovascular: Regular rate, Normal S1, Normal S2 Mental/Cognitive Status: Alert/Oriented X3 Plan Anesthesia Type: General Consent for Procedure(s) Verified and Reviewed: Yes Code Status: Attempt Resuscitation ASA classification: 3-Severe systemic disease Is this case an emergency?: No
[2019-09-04] MEDS ORDERED: BRIMONIDINE 0.2% OPHTH DROPS 5 ML OPTH ONE (10:36)
[2019-09-04] MEDS ORDERED: EPINEPHrine 1 MG/ML AMP IVP ONE (10:36)
[2019-09-04] MEDS ORDERED: CHONDR SULF/HYALURONATE SYRINGE IO ONE (10:36)
[2019-09-04] MEDS ORDERED: TIMOLOL 0.5% OPHTH DROPS OPTH ONE (10:37)
[2019-09-04] MEDS ORDERED: BSS/LIDOCAINE/EPINEPHRINE 1 ML SYRINGE IO ONE (10:37)
[2019-09-04] MEDS ORDERED: TRIAMCIN/MOXIFLOX OPHTHALMIC 0.6 ML VIAL IO ONE (10:38)
[2019-09-04] MEDS ORDERED: VANCOMYCIN OPHTHALMI 8MG/0.8ML 8 MG/0.8 ML SYRINGE IO ONE (10:39)
--- NOTE | 2019-09-04 11:35 | OPERATIVE REPORT ---
DATE OF SERVICE: 09/04/2019 Physician: Rogelio Beck MD PREOPERATIVE DIAGNOSIS: Visually significant cataract, left eye. Cataract surgery was performed on the right eye in 11/21/2018. POSTOPERATIVE DIAGNOSIS: Visually significant cataract, left eye. Cataract surgery was performed on the right eye in 11/21/2018. PROCEDURE: Phacoemulsification with posterior chamber intraocular lens implant, left eye. SURGEON: Rogelio Beck MD ANESTHESIA: General anesthesia using LMA. COMPLICATIONS: None. OPERATIVE INDICATIONS: This is a 74-year-old man with progressive vision loss in the left eye due to 3+ nuclear sclerotic cataract. Best corrected visual acuity was 20/70 with glare to 20/70 in the le ft eye. Indications for surgery were overall decrease in vision, difficulty seeing words, closed cap tion or game scores on TV, difficulty seeing street signs. He was consented at length concerning ris ks and benefits of cataract surgery, after which he expressed a desire to proceed with surgery. This was actually done by his , who is his power of trademark attorney due to his dementia. OPERATIVE PROCEDURE: Patient was taken to OR #3 and placed under monitored anesthesia care. A surgi fiona timeout was conducted confirming correct patient, correct procedure, and correct surgical site. He was induced for general anesthesia and then prepped and draped in the usual sterile fashion. The eye was entered at the 6 o'clock and 3 o'clock positions. Intracameral Shugarcaine was then injected into the anterior chamber, followed by Viscoat. A continuous-tear curvilinear capsulorrhexis was pe rformed. The nucleus was hydrodissected and phacoemulsified. The cortex was evacuated using automat ed infusion and aspiration. Provisc was injected in the capsular bag, and an 11.5 diopter intraocula r lens was inserted in the bag. Approximately 0.25 mL of a mixture of triamcinolone and moxifloxacin was injected transsclerally into the vitreous. An additional 0.55 mL of a mixture of triamcinolone, moxifloxacin and vancomycin was injected subconjunctivally in the superior quadrant for infection an d inflammation prophylaxis. I and A was used to evacuate the viscoelastic materials. The eye was in flated to physiologic pressure using balanced salt solution and found to be watertight. Patient was extubated and then taken from the operating room in good condition and given postoperative instructio ns. TD: 09/04/2019 10:51
[2019-09-04 11:46] VITALS: BP 115/63
== END 2019-09-04 08:58 | disposition home or self-care (01) ==
LOC: SDS 08:57
PROVIDERS: ATTEND Ophthalmology
PROC: 08RK3JZ Replacement of Left Lens with Synthetic Substitute, Percutaneous Approach (ICD-10-PCS; principal; 2019-09-04 10:00)
DX: H25.12 Age-related nuclear cataract, left eye (principal); H40.1130 Primary open-angle glaucoma, bilateral, stage unspecified; Z87.820 Personal history of traumatic brain injury; F03.90 Unspecified dementia, unspecified severity, without behavioral disturbance, psychotic disturbance, mood disturbance, and anxiety
CPT/HCPCS: 66984; A9270; J3490; V2632

== ENCOUNTER 2020-07-01 14:10 | Outpatient (CLI) | payer MEDICARE, MEDICAID ==
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
== END 2020-07-01 14:11 | disposition home or self-care (01) ==
LOC: PC 14:10
PROVIDERS: ATTEND Nurse Practitioner Family
DX: Z51.5 Encounter for palliative care (principal); F03.91 Unspecified dementia, unspecified severity, with behavioral disturbance; H61.23 Impacted cerumen, bilateral; R29.6 Repeated falls; R63.4 Abnormal weight loss; R32 Unspecified urinary incontinence; Z79.899 Other long term (current) drug therapy; Z79.82 Long term (current) use of aspirin; Z87.820 Personal history of traumatic brain injury; Z91.5 Personal history of self-harm
CPT/HCPCS: 99350

== ENCOUNTER 2020-07-15 15:00 | Outpatient (CLI) | payer MEDICARE, MEDICAID ==
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
== END 2020-07-15 15:01 | disposition home or self-care (01) ==
LOC: PC 15:00
PROVIDERS: ATTEND Nurse Practitioner Adult Health
DX: Z51.5 Encounter for palliative care (principal); K59.00 Constipation, unspecified; F03.91 Unspecified dementia, unspecified severity, with behavioral disturbance; R53.1 Weakness; Z91.81 History of falling; Z66 Do not resuscitate
CPT/HCPCS: 99350